=== PATIENT | male | born 1980 | race Caucasian/White ===

== ENCOUNTER → 2017-12-05 06:12 | Day surgery (SDC) | payer OTHER ==
[~2017-12-05 06:12] MED LIST: Atracurium* 10 MG/ML 10 ML VIAL ONE; Buffered Lidocaine 0.9% SYRIN* 5 ML/SYR SYRINGE INTRADERM ONE; Bupivacaine 0.5% SDV PF* 30ML VIAL ONE; Dexamethasone IV* 4 MG/ML 1 ML (4 MG) IV SLOW PU ONE; Dexamethasone IV* 4 MG/ML 1 ML (4 MG) ONE; DiMENhydriNATE IV* 50 MG/ML VIAL IV PUSH PRN; EPINEPHRINE 1 MG/ML 1 ML VIAL ONE; Famotidine IV* 10 MG/ML 2 ML (20 mg) IV ONE; Famotidine IV* 10 MG/ML 2 ML (20 mg) ONE; Glycopyrrolate IV* 0.2 MG/ML 1 ML VIAL ONE; Ketorolac INJ* 30 MG/ML 1 ML VIAL ONE; Lidocaine 2% PF * 5 ML VIAL ONE; Midazolam* 1 MG/ML 5 ML VIAL (5 MG) ONE; Naloxone* 0.4 MG/ML 1 ML VIAL IV PRN; Ondansetron ODT TAB* 4 MG ONE; Ondansetron ODT TAB* 4 MG PO PRN; Phenylephrine INJ* 10 MG/ML 1 ML VIAL (10 MG) ONE; Propofol* 10 MG/ML 20 ML BTL IV PUSH ONE; Succinylcholine* 20 MG/ML 10 ML VIAL ONE; ceFAZolin 2 GM PREMIX (*) 2 GM/50 ML BAG IVPB ONE; fentaNYL* 50 MCG/ML 2 ML VIAL (100 MCG VIAL) IV PRN; fentaNYL* 50 MCG/ML 5 ML VIAL (250 MCG VIAL) ONE; methylPREDNISolone ACETATE 80* 80 MG/ML 1 ML VIAL ONE; oxyCODONE/Acetamin 5/325 MG* TAB PO PRN
[2017-12-05 09:53] VITALS: BP 120/91
--- NOTE | 2017-12-05 12:55 | OP ---
DATE OF OPERATION: 12/05/17 - [facility] DATE OF : 82. ATTENDING SURGEON: Renetta Portillo MD. MUSEUM SECURITY CHIEF: VERONA Nesbitt. Ms. Phillips did help throughout the procedure with preparation of the leg, wound retraction, manipulation of the knee, and wound closure. ANESTHESIOLOGIST: Dr. Chahal. ANESTHESIA: General. 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 OPERATIVE PROCEDURE: Left knee arthroscopy with lateral femoral chondroplasty. ESTIMATED BLOOD LOSS: Less than 25 cc. COMPLICATIONS: None. SPECIMEN: None. BRIEF HISTORY/INDICATION: Mr. 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 He developed the acute onset of mechanical symptoms, locking and difficulty fully extending his knee. He had an MRI, which showed an osteochondral defect of the lateral femoral condyle. Due to the continued pain and decreased quality of life, the patient elected to have left knee arthroscopy with possible chondroplasty, possible synovectomy, possible partial meniscectomy. Informed consent was obtained from the patient. He understood the risks of surgery included, but were not limited to bleeding, infection, damage to nearby structures, continued pain, need for further surgery, failure to introduce the scope to the knee, stroke, heart attack, blood clot, and . The patient elected to proceed. The patient and I had a clear conversation on the fact that his abnormal anatomy may make it difficult for me to perform a normal arthroscopy. He understood and wished to proceed. INTRAOPERATIVE FINDINGS: Intraoperatively, the patient had complete lateral dislocation of the patella and tracking. A lateral femoral condylar cartilage flap was noted, which measured approximately 3 x 2 cm. There was exposed subchondral bone beneath this. The patient's anterior knee joint had a significant amount of fibrous tissue and synovium. Medial joint space showed no obvious meniscal tear or other abnormality. There was no visible ACL. Lateral compartment was not well visualized. DESCRIPTION OF PROCEDURE: Mr. Bach was identified in the preanesthesia unit. His left lower extremity was marked as the correct operative side. Informed consent was signed and placed in the chart. The patient was taken to the operating room and placed under general anesthesia. The left lower extremity was prepped and draped in the usual sterile fashion. Preop time-out was made to correctly identify the patient, side, and site. Appropriate perioperative antibiotics were given within 1 hour of incision. A 1.5 cm lateral portal incision was made along the anterolateral joint line. Trocar was introduced. As soon as the light and water sources were turned on, the suprapatellar pouch was well visualized. This was abnormal anatomy with lateral dislocation of the patella. The patellar cartilage had no obvious osteochondral defects. Suprapatellar pouch had no obvious defect. There was some floating fragments of cartilage in the joint space. Patellofemoral compartment was abnormal due to the lateral dislocation of the patella, all of the anatomy during this arthroscopy was abnormal. Medial gutter and lateral gutter showed some mild plica formation, but no large loose bodies. Medial compartment of the knee joint had no obvious meniscal tear. No significant degenerative tears. A large amount of anterior fibrous tissue. There was no visible ACL. There was visible PCL. A [id number] position and lateral compartment were undertaken, but there was poor visualization of the lateral compartment due to joint space narrowing and fibrous tissue. There was no obvious meniscal tear. Under direct visualization, a medial portal incision was made. Shaver and radiofrequency ablation wand were used to remove the cartilage flap along the lateral femoral condyle in a conservative manner. A smooth border of this cartilage was obtained. No further cartilage flaps were identified. The shaver was placed in the suprapatellar pouch and any free floating cartilage fragments were removed from the knee joint. The knee was copiously irrigated with sterile saline. All instruments were removed. Incisions were closed with 3-0 nylon suture. Intra-articular injection of 80 mg Depo-Medrol and 6 cc of 0.25% Marcaine was placed in the knee. Sterile Xeroform, 4x4s, and Webril were placed over the knee. Bc wrap and cold pack were placed over this. The patient's anesthesia was reversed without difficulty. He was taken to the PACU in stable condition. Intended weightbearing will be weightbearing as tolerated. Intended DVT prophylaxis will be aspirin. He will follow up in 2 weeks time for suture removal. [id number]/[facility] #: [id number] [facility]
== END | disposition home or self-care (01) ==
LOC: OR 06:12
PROVIDERS: ATTEND Orthopaedic Surgery Adult Reconstructive Orthopaedic Surgery
DX: Q87.2 Congenital malformation syndromes predominantly involving limbs (principal); M67.52 Plica syndrome, left knee; M93.262 Osteochondritis dissecans, left knee
CPT/HCPCS: A9270-GY; J0330; J0690; J1040; J1100; J1885; J2250; J2704; J3010